=== PATIENT | female | born 1990 | race Caucasian/White ===

== ENCOUNTER → 2016-12-10 | Outpatient (CLI) | payer OTHER ==
[~2016-12-10] MED LIST: AMPH20CA3 PO; BIOT50006 PO; BUPR200T2 PO; CYCL10TA6 PO; ESCI10TA17 PO; ETON1IMP2 INTRAD; GABA800T PO; OMEG10007 PO; PRENTAB26 PO; PRLSR20 PO; RTL20 PO; VALA500T60 PO; vitamin b6 PO
--- NOTE | 2016-12-10 13:03 | DIAGNOSTIC IMAGING REPORT ---
MRI LUMBAR SPINE WITHOUT IV CONTRAST CLINICAL HISTORY: Chronic low back pain after a fall in 2013. Lower extremity radiculopathy. COMPARISON STUDY: No priors. TECHNIQUE: MRI of the lumbar spine is performed utilizing various T1 and T2-weighted sequences in the axial and sagittal planes. IV contrast was not administered for this examination. FINDINGS: Lumbar spine: There are mild and chronic-appearing superior endplate compression deformities of L2 and L3. No retropulsed fragments are seen. Vertebral body height is otherwise maintained throughout the lumbar spine. The transverse and spinous processes are intact as visualized. There is no evidence of spondylolysis. No destructive bony lesion is suspected. Intervertebral discs: There is mild degenerative disc desiccation seen throughout the lumbar spine. Mild loss of height is noted at L2-L3 and L4-L5. Spinal cord: The partially visualized spinal cord is normal in morphology and signal intensity. The conus medullaris terminates at the L1-L2 interspace. The nerve roots of the cauda equina are normal in morphology. Fatty filum terminale is incidentally noted. L1-L2: Unremarkable. L2-L3: There is mild posterior disc bulge. There is no significant acquired compromise of the central canal. The neural foramina are patent. L3-L4: Unremarkable. L4-L5: There is a disc herniation eccentric to the right with annular fissure. This causes moderate central canal stenosis with a minimum AP canal diameter of 5 mm. This impinges on the transiting right-sided nerve roots. The neural foramina are patent. Mild facet arthropathy is of no consequence. L5-S1: There is broad-based posterior disc bulge with annular fissure. There is no significant acquired compromise of the central canal. Minimal subarticular stenosis is identified. Facet arthropathy causes minimal left-sided neural foraminal stenosis. Sacrum: The visualized sacrum is normal in morphology and signal intensity. Soft tissues: The paraspinous soft tissues are within normal limits. The partially imaged retroperitoneal structures are grossly normal but incompletely assessed. IMPRESSION: 1. There are mild chronic superior endplate compression fractures of L2 and L3. No retropulsed fragments are identified. 2. No acute destructive bony process is seen. 3. There is a disc herniation eccentric to the right at L4-L5. This impinges on the transiting right-sided nerve roots and causes moderate central canal stenosis. 4. Mild spondylotic change at additional levels. See discussion for detailed level by level analysis. Dictated: 12/10/2016 11:13 AM Transcribed: 12/10/2016 1:03 PM [email or web address] Electronically signed by: Joe Wade M.D. 12/10/2016 1:15 PM Dictated Date/Time: 12/10/2016 11:13 AM
== END | disposition home or self-care (01) ==
LOC: C.MRI 09:49
PROVIDERS: ATTEND Psychiatry & Neurology Neurology
DX: M51.9 Unspecified thoracic, thoracolumbar and lumbosacral intervertebral disc disorder (principal); M54.5 Low back pain; M54.10 Radiculopathy, site unspecified

== ENCOUNTER → 2017-01-01 | Outpatient (CLI) | payer OTHER ==
--- NOTE | 2017-01-01 14:53 | DIAGNOSTIC IMAGING REPORT ---
CERVICAL SPINE MRI HISTORY: Cervical radiculopathy. Pain. M54.12 Cervical radiculopathy Bilateral cervical radiculopathy at TECHNIQUE: Multiplanar multisequence MRI of the cervical spine was performed without the use of contrast. COMPARISON STUDY: None. FINDINGS: Signal characteristics of the vertebral bodies as well as intervertebral discs are unremarkable. Signal characteristics the cervical cord are unremarkable. Study is moderately motion degraded. There is straightening of the cervical curvature. C2-C3: No significant central canal or neural foraminal narrowing. C3-C4: No significant central canal or neural foraminal narrowing. C4-C5: No significant central canal or neural foraminal narrowing. C5-C6: Left central disc bulge with a mild impact upon the left anterior cervical cord. Neural foramina patent bilaterally C6-C7: No significant central canal or neural foraminal narrowing. C7-T1: No significant central canal or neural foraminal narrowing. IMPRESSION: 1. Moderate left posterior disc bulge C5-C6 creating mild impact upon the anterior cervical cord. 2. Reversal of the normal cervical curvature. 3. Otherwise negative study Electronically signed by: Bandar Johnson M.D. 01/01/2017 2:52 PM Dictated Date/Time: 01/01/2017 2:49 PM
== END | disposition home or self-care (01) ==
LOC: C.MRI 13:35
PROVIDERS: ATTEND Psychiatry & Neurology Neurology
DX: M54.12 Radiculopathy, cervical region (principal)

== ENCOUNTER → 2017-02-28 | Outpatient (CLI) | payer OTHER ==
[~2017-02-28] MED LIST changes: +GADAVIST IV PRN
--- NOTE | 2017-02-28 12:34 | DIAGNOSTIC IMAGING REPORT ---
BRAIN COMBO HISTORY: 26 years-old Female ATAXIC GAIT,NEUROPATHY history of remote fall. Patient presents with pain and numbness of all the extremities with right-sided gait disturbance. Headaches with visual changes. COMPARISON: MRI cervical spine 01/01/2017 TECHNIQUE: Multiplanar multisequence MRI of the brain was obtained both with and without the use of 6 mL Gadavist FINDINGS: There is no restricted diffusion to suggest acute ischemia. The midline structures including the corpus callosum, brainstem, optic chiasm, infundibulum, and pituitary gland are unremarkable. 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 Upper cervical spine is unremarkable. There is no acute intracranial hemorrhage, midline shift, abnormal extra-axial collections, hydrocephalus or intracranial mass. Brain signal is within normal limits. The major flow voids at the skull base appear patent. Orbits are symmetric. Mastoid air cells and paranasal sinuses are generally clear. No abnormal intra-axial or extra-axial enhancement identified. IMPRESSION: 1. No acute intracranial abnormality. No abnormal enhancement. 2. 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 The above report was generated using voice recognition software. It may contain grammatical, syntax or spelling errors. Electronically signed by: Joe Bean M.D. 02/28/2017 12:33 PM Dictated Date/Time: 02/28/2017 12:28 PM
== END | disposition home or self-care (01) ==
LOC: C.MRIBC 10:07
PROVIDERS: ATTEND Physician Assistant
DX: R26.0 Ataxic gait (principal); G62.9 Polyneuropathy, unspecified; E34.8 Other specified endocrine disorders

== ENCOUNTER → 2017-03-19 | Outpatient (CLI) | payer OTHER ==
[~2017-03-19] MED LIST changes: -GADAVIST IV PRN
--- NOTE | 2017-03-19 22:29 | DIAGNOSTIC IMAGING REPORT ---
THORACIC SPINE WITHOUT HISTORY: Mental status change. Pain. Neuropathy. ATAXIC, EXTRAPYRAMIDAL MOVEMENT DISORDER TECHNIQUE: Multiplanar multisequence MRI of the thoracic spine was performed without the use of contrast. COMPARISON: None. FINDINGS: Alignment and curvature are intact. No fracture or subluxation. No significant central canal or neural foraminal narrowing. Instill note is made of a slight wedge deformity superior endplate of L2, L3, and L4.. These appear nonacute. IMPRESSION: 1. Normal MRI thoracic spine. 2. Incidental note is made of mild wedge deformity superior endplates of L2-L3 and L4 considered nonacute. The above report was generated using voice recognition software. It may contain grammatical, syntax or spelling errors. Electronically signed by: Bandar Johnson M.D. 03/19/2017 10:28 PM Dictated Date/Time: 03/19/2017 10:26 PM
== END | disposition home or self-care (01) ==
LOC: C.MRI 21:21
PROVIDERS: ATTEND Physician Assistant
DX: R26.0 Ataxic gait (principal); G25.9 Extrapyramidal and movement disorder, unspecified; R26.9 Unspecified abnormalities of gait and mobility